=== PATIENT | female | born 2000 | race Caucasian/White ===

== ENCOUNTER 2018-11-24 03:11 | Emergency (ER) | payer BC, OTHER ==
[~2018-11-24] VITALS: Wt 66.5 kg
[2018-11-24] MEDS ORDERED: PIPER-TAZO 3.375 GM IV (PMX) 100 ML IVPB STA (05:24)
[2018-11-24] MEDS ORDERED: SOD CHLORIDE 0.9% 500 ML IV STA (05:24)
[2018-11-24] MEDS ORDERED: SULF1TAB31 PO (05:29)
[2018-11-24] MEDS ORDERED: CLIN300C10 PO (05:29)
--- NOTE | 2018-11-24 05:29 | ERD ---
ER Documentation Chief Complaint Chief Complaint L ARM PAIN/ NUMBNESS; RECENT ADMISSION FOR CELLULITIS HPI This is a 18-year-old female comes in with planes of left arm swelling. She is a intravenous drug user. She was at [facility] yesterday and was admitted for cellulitis but signed out AGAINST MEDICAL ADVICE and now she is here on our doorstep requesting medical treatment. ROS All systems reviewed and are negative except as per history of present illness. 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 Neck: Full range of motion. No meningismus. Resp: Clear to auscultation bilaterally Cardio: Regular rate and rhythm, no murmurs Abd: Soft, non tender, non distended. Normal bowel sounds Skin: No petechiae or rashes Back: No midline or flank tenderness Ext: Mild induration and erythema of the left upper extremity. No abscess noted. Neur: Awake and alert Psych: Normal Mood and Affect Results 24 hrs Current Medications Medications Dose Sig/Jorge L Start Time Status Last (Trade) Ordered Route PRN Stop Time Admin Dose Reason Admin Sodium 500 ml @ Q1H STAT 11/24/18 Chloride 500 mls/hr IV 05:24 11/24/18 06:23 Piperacillin 100 ml @ ONCE STAT 11/24/18 Sod/ 200 mls/hr IVPB 05:24 11/24/18 Tazobactam 05:53 Sod Procedures/MDM Medical decision making: This very pleasant patient who has a cellulitis of the upper extremity. No abscess or arterial or venous insufficiency were noted. Given dose of antibiotics here in the ER including Zosyn and vancomycin. She will be discharged home with Bactrim and clindamycin and told to follow-up with her primary care physician. Return for worsening symptoms. Departure Diagnosis: Primary Impression: Cellulitis Site of cellulitis: unspecified site Qualified Codes: L03.90 - Cellulitis, unspecified Additional Impression: Intravenous drug user Condition: EMILY Zhou November 24, 2018 05:29
[2018-11-24] MEDS ORDERED: VANCOMYCIN 1 GM (PMX) 250 ML IVPB ONE (05:30)
[2018-11-24 09:50] VITALS: BP 111/76; PULSE 76; RESP 16
== END 2018-11-24 09:50 | disposition home or self-care (01) ==
LOC: FTE 03:11 → E/R 09:50
DX: L03.114 Cellulitis of left upper limb (principal); F19.10 Other psychoactive substance abuse, uncomplicated; F17.210 Nicotine dependence, cigarettes, uncomplicated
CPT/HCPCS: 36415; 80053; 81003; 81025; 83690; 85025; 93931; 93971; 96374; 96375; 99285; J2543; J3370; J7040